=== PATIENT | male | born 1945 | race Caucasian/White ===

== ENCOUNTER 2019-04-02 14:16 | Inpatient (IN) ==
[2019-04-02] MEDS ORDERED: NS 1,000 ML IV ONE ×2 (14:37→14:38)
[2019-04-02 15:12] LABS: BASO# 0.03 X1000 (0.0-0.2); BASO% 0.5 % (0.0-0.8); EOS# 0.03 X1000 (0.0-0.7); EOS% 0.5 % (0.0-10.0); HEMATOCRIT 30.8 % (42.0-52.0); HEMOGLOBIN 10.2 g/dL (14.0-18.0); IMM GRAN# 0.44 X1000 (0.0-0.04); IMM GRAN% 6.8 % (0.0-0.5); LYMPH# 0.68 X1000 (1.2-3.4); LYMPH% 10.6 % (20.5-51.1); MCH 35.3 PG (27-31); MCHC 33.1 g/dL (33-37); MCV 106.6 FL (81-99); MONO# 0.42 X1000 (0.11-0.59); MONO% 6.5 % (1.7-9.3); MPV 10.1 FL (7.4-10.4); NEUT# 4.83 X1000 (1.4-6.5); NEUT% 75.1 % (42.2-75.2); PLT 159 X1000 (130-400); RBC 2.89 XMIL (4.7-6.1); RDW 18.9 % (11.5-14.5); WBC 6.43 X1000 (4.8-10.8)
[2019-04-02 15:28] LABS: PROTIME 13.7 Seconds (11.0-16.0)
--- NOTE | 2019-04-02 15:41 | Diag Imaging Result Doc PS360 ---
CHEST-2 VIEWS - 04/02/2019 INDICATION: short of breath COMPARISON: 01/30/2019 FINDINGS: There is a stable right chest port in good position. There may be some sclerotic densities in the bones compatible with metastases. No focal infiltrates, pneumothorax, or pleural effusion. Heart size and pulmonary vascularity is normal. IMPRESSION: No acute cardiopulmonary abnormality. Electronically signed by Hunter Lehman 04/02/2019 3:38 PM
[2019-04-02 15:45] LABS: ALBUMIN 3.6 g/dL (3.5-5.0); CALCIUM 8.5 mg/dL (8.8-10.2); CREATININE 2.3 mg/dL (0.7-1.2); POTASSIUM 4.4 mmol/L (3.5-5.1); TOTAL BILIRUBIN 0.9 mg/dL (0.20-1.00); TOTAL PROTEIN 5.7 g/dL (6.3-8.3)
[2019-04-02] MEDS ORDERED: ZOSYN 4.5 GM in NS 100 ML IV ONE (15:56)
[2019-04-02] MEDS ORDERED: VANCOMYCIN 1 GM/NS 1 GM/250 ML IVPB IV ONE (15:56)
--- NOTE | 2019-04-02 16:28 | PROVIDER DOCUMENTATION ---
This chart was entered by Melissa Ferris Scribe, acting as scribe for Bhavin Selby MD. HPI-General Adult - General Chief Complaint: B/P Problems Stated Complaint: B/P PROBLEMS Time Seen by Provider: 04/02/19 14:19 Source: patient Allergies/Adverse Reactions: Patient Allergies Allergy/AdvReac Type Severity Reaction Status Date / Time Sulfa (Sulfonamide Allergy Unknown Verified 04/02/19 14:24 Antibiotics) Home Medications: Home Medication List Medication Instructions Recorded Confirmed Last Taken Type Dextroamphetamine/Amphetamine 30 mg PO DAILY 01/29/19 01/29/19 01/30/19 08:00 History [Adderall 30 mg Tablet] Fluoxetine HCl [Prozac] 20 mg PO DAILY 01/29/19 01/29/19 01/30/19 08:00 History Hydrocodone/Acetaminophen [Willcox 1 ea PO PRN PRN 01/29/19 01/29/19 01/29/19 21:00 History 10-325 Tablet] Levothyroxine [Synthroid] 225 microgm PO DAILY 01/29/19 01/29/19 01/30/19 08:00 History Potassium Chloride 30 meq PO DAILY 01/29/19 01/29/19 01/30/19 08:00 History - History of Present Illness -Gen Adult Nature of Presenting Problems: Patient is a 73 year old male who presents with weakness and shortness of breath. Patient states checking his vitals and his blood pressure was 64/55 and his heart rate was 99. Denies cough, nasal congestion, pain, nausea, vomiting and diarrhea. States was admitted to [facility] 8 days ago. Report he is currently on chemo for stage 4 prostate cancer and his last treatment was 4 days ago. Location of Pain/Injury: reports: none Pain Radiation: reports: no radiation Quality of Pain: reports: none Severity: reports: mild Onset/Duration: reports: this afternoon Timing: reports: still present Context/Activities at Onset: reports: light activity Associated Symptoms: reports: shortness of breath, weakness Similar Symptoms Previously?: Yes Recently seen or treated by another doctor?: Yes Review of Systems - Adult - REVIEW OF SYSTEMS - ADULT Constitutional: reports: no symptoms reported. denies: chills, fever, fatique Eyes: reports: no symptoms reported Ears, Nose, Mouth & Throat: reports: no symptoms reported. denies: ear pain, sinus problem, nose pain, throat pain Cardiovascular: reports: no symptoms reported Respiratory: reports: see HPI, shortness of breath. denies: cough, wheezing Gastrointestinal: reports: no symptoms reported. denies: diarrhea, nausea, vomiting Genitourinary: reports: no symptoms reported Musculoskeletal: reports: see HPI, muscle weakness. denies: back pain, muscle aches, neck pain Integumentary: reports: no symptoms reported Neurological: reports: no symptoms reported Psychiatric: reports: no symptoms reported Endocrine: reports: no symptoms reported Hematologic/Lymphatic: reports: no symptoms reported Allergic/Immunologic: reports: no symptoms reported All Other Systems: Reviewed and Negative Past History - Adult - PAST MEDICAL HISTORY-ADULT Review of Records: reports: Nursing Assessment Review, Medications Reviewed, Social history reviewed & non-contributory. Major Childhood Illnesses: reports: denies history Cardiovascular: reports: denies history Respiratory: reports: denies history Gastrointestinal: reports: denies history Obstetrical/Gynecological: reports: denies history Genitourinary: reports: prostate cancer Musculoskeletal: reports: denies history Neurological: reports: denies history Psychiatric: reports: denies history Endocrine/Immune: reports: denies history Other Conditions: reports: denies history - PRIOR SURGERIES/PROCEDURES Surgical/Procedure History: reports: reviewed, not pertinent - IMMUNIZATION STATUS Childhood Immunizations: See Nurse Assessment Flu Vaccine: See Nurse Assessment - FAMILY HISTORY Family History: reviewed, not pertinent - SOCIAL HISTORY Smoking: cigar, less than 1 pack/day Provider spent 3-5 mins advising pt. on dangers of tobacco.: Discussed manners to quit use, and f/u contacts for add'l counseling. Substance Use: denies Physical Exam-General - PHYSICAL EXAM-ADULT Initial Vital Signs Reviewed: Yes - CONSTITUTIONAL General Appearance: alert, no apparent distress. negative: lethargic, slow to respond - HEAD, EARS, NOSE, MOUTH & THROAT HENMT: moist mucous membranes. negative: angioedema, hearing deficit - RESPIRATORY Respiratory: lungs clear, normal breath sounds, other (port to right upper chest). negative: crackles, rales, wheezing - CARDIOVASCULAR Cardiovascular: normal peripheral pulses, regular rate, rhythm. negative: tachycardia, systolic murmur - GASTROINTESTINAL (ABDOMEN) Abdominal Exam: normal bowel sounds, non tender, soft. negative: distended, guarding, rebound - MUSCULOSKELETAL Back Exam: normal inspection. negative: decreased range of motion, muscle spasm Extremity: non-tender, normal inspection. negative: deformity, erythema, swelling - SKIN Integumentary: normal turgor, warm/dry, pallor. negative: diaphoresis, ecchymosis, erythema - NEUROLOGIC Neurologic: grossly normal. negative: aphasia, facial droop - PSYCHIATRIC Psych/Mental Status: normal mood/affect, oriented x 3. negative: anxious Progress - PLAN OF CARE/RESULTS Progress/Plan/Lab Results: Vital Signs - 8 hr 04/02/19 14:21 Temperature 97.4 F L Pulse Rate 103 H Respiratory Rate 20 Blood Pressure 79/55 O2 Sat by Pulse Oximetry 95 Result Diagrams: 04/02/19 15:00 04/02/19 15:00 - REASSESSMENT Reassessment #1 Time Reassessed: 16:25 Status: improving (Given IVF bolus, almaguer cultured, Given IV Vanco/Zosyn in case of line sepsis from port. WIll aske Hospitalist to admit) - XRAY 1 XRAY Study: Chest Impression: See EMR Report ( CHEST-2 VIEWS - 04/02/2019 INDICATION: short of breath COMPARISON: 01/30/2019 FINDINGS: There is a stable right chest port in good position. There may be some sclerotic densities in the bones compatible with metastases. No focal infiltrates, pneumothorax, or pleural effusion. Heart size and pulmonary vascularity is normal. IMPRESSION: No acute cardiopulmonary abnormality. 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 Hypotension Qualifiers: Hypotension type: hypotension due to hypovolemia Qualified Code(s): I95.89 - Other hypotension; E86.1 - Hypovolemia Sepsis Qualifiers: Sepsis type: sepsis due to unspecified organism Qualified Code(s): A41.9 - Sepsis, unspecified organism Disposition: ADMITTED INPATIENT 09 Certified Medical Emergency: Emergent Condition: Fair Referrals and Follow-Ups: None,PCP [Primary Care Provider] - - Critical Care Note This patient required my direct & personal management of CC.: Yes Total Time (mins): 40 Critical Care Statement: This patient required my direct personal management to treat or rule out processes, the absence of which, could potentiallly result in sudden, clinically significant life or limb threatening deterioration. Attestation - Physician/ GOSIA Attestation Patient care was provided by Advanced Practice Provider:: No The physician spent face to face time with patient:: Yes Advanced Practice Provider documentation review:: Supervising physician onsite and consulted in the evaluation and care of this patient. The physician did have a face to face encounter with the patient. This chart was documented by the indicated scribe, (Melissa Ferris Scribe) and accurately reflects the services I performed and decisions made by me, Bhavin Selby MD, as attested by the provider's signature.
[2019-04-02 16:31] LABS: INFLUENZA A NEGATIVE (NEGATIVE); INFLUENZA B NEGATIVE (NEGATIVE)
--- NOTE | 2019-04-02 16:52 | ED EKG INTERP ---
EKG Interpretation - EKG Time of EKG reading by physician:: 16:51 EKG Read and Signed by:: Bhavin Selby EKG Interpretation (*Must complete 3 of following elements*): Abnormal Rate: 87 Rhythm: NSR [place]: normal QRS: other (OIWMI) [place] Interval: normal ST Wave: normal Prior EKG Comparison: unchanged from prior Attestation - Physician/ GOSIA Attestation Patient care was provided by Advanced Practice Provider:: No The physician spent face to face time with patient:: Yes Advanced Practice Provider documentation review:: Supervising physician onsite and consulted in the evaluation and care of this patient. The physician did have a face to face encounter with the patient.
--- NOTE | 2019-04-02 16:53 | EKG Report ---
Test Performed on : 04/02/2019 4:47:17 PM Test Reason : weakness, hypotension Blood Pressure : / mmHG Vent. Rate : 087 BPM Atrial Rate : 087 BPM P-R Int : 176 ms QRS Dur : 094 ms QT Int : 390 ms P-R-T Axes : 010 -15 044 degrees QTc Int : 469 ms Normal sinus rhythm. Inferior infarct , age undetermined Abnormal ECG When compared with ECG of 29-JAN-2019 13:28, Inferior infarct is now present Unconfirmed Result
[2019-04-02] MEDS ORDERED: TYLENOL PO PRN (17:36)
[2019-04-02] MEDS ORDERED: ZOFRAN IV PRN (17:36)
[2019-04-02] MEDS ORDERED: NS 1,000 ML IV SCH (17:45)
[2019-04-02 19:04] LABS: BILIRUBIN URINE NEGATIVE (NEGATIVE); BLOOD URINE NEGATIVE (NEGATIVE); GLUCOSE URINE NEGATIVE (NEGATIVE); KETONE URINE NEGATIVE (NEGATIVE); LEUKOCYTES URINE TRACE (NEGATIVE); NITRITE URINE NEGATIVE (NEGATIVE); PROTEIN URINE 1+(30 mg/dL) mg/dL (NEGATIVE); SP GRAVITY URINE 1.015; UROBILINOGEN URINE NORMAL
[2019-04-02 19:05] LABS: CLARITY CLEAR (CLEAR); COLOR YELLOW
[2019-04-02 19:08] LABS: URINE SOURCE CLEAN CATCH
[2019-04-02 19:12] LABS: URINE BACTERIA NEGATIVE /HFP; URINE CRYSTAL CA OXALATE PRESENT /HPF; URINE EPITHELIAL CELLS <10 /HPF (<10); URINE RBC <10 /HPF (<10); URINE WBC <10 /HPF (<10); URINE YEAST NONE SEEN /HPF
[2019-04-02 19:13] LABS: URINE CAST GRANULAR PRESENT /LPF; URINE SMALL ROUND CELLS TRANSITIONAL PRESENT
[2019-04-02] MEDS: LOVENOX SUBQ SCH (19:37)
--- NOTE | 2019-04-02 19:41 | HISTORY AND PHYSICAL ---
CHIEF COMPLAINT: Low blood pressure and generalized weakness. HISTORY OF PRESENT ILLNESS: This is a 73-year-old gentleman with a history of metastatic prostate cancer, currently receiving chemotherapy, obstructive sleep apnea and hypothyroid. He presents to the emergency room after checking his blood pressure due to increasing weakness, shortness of breath, and he was found to have a pressure of 64/55 with a heart rate of 99. He states that he was in [place] last week with the same symptoms. He was hypotensive at this time. He stated that he was volume depleted. On arrival to the emergency room, he had a pressure of 79/55 with a heart rate of 103. He was found to be in acute kidney injury with a creatinine of 2.3, BUN of 42. He was given 2 L of IV fluid in the emergency room, and blood pressures have stayed in the 99 to 110 over 60s range. PAST MEDICAL HISTORY: 1. Prostate cancer with bony metastases. 2. Hypotension. 3. Hypothyroid. 4. Sleep apnea. PAST SURGICAL HISTORY: Port-A-Cath placement. SOCIAL HISTORY: He smokes about a pack a day. He denies alcohol or illicit drug use. ALLERGIES: Sulfa, which causes unknown reaction. HOME MEDICATIONS: A list will be obtained by the nursing staff, and once verified, we will review and restart as appropriate. REVIEW OF SYSTEMS: Discussed with patient with pertinent positives stated in the HPI. He denied any syncope, dizziness, any chest pain or palpitations, any PND, orthopnea, productive cough, any nausea, vomiting, diarrhea, constipation, black or bloody vomitus or stools, hematuria, dysuria, frequency, urgency. PHYSICAL EXAMINATION: GENERAL: This is a 73-year-old gentleman who is sitting up in the bed in no distress. VITAL SIGNS: Blood pressure is 106/62 with a heart rate of 85, respirations 18, temperature is 97.4 degrees with room air saturations 95% to 97%. EYES: Pupils equal, round, react to light. EOMs are intact. Sclerae are anicteric. HENT: Head is normocephalic, atraumatic. Mucous membranes are dry. NECK: Supple with trachea midline. CARDIOVASCULAR: Regular rate and rhythm. S1 and S2 appreciated. No murmur. Calves are nontender bilateral with peripheral pulses palpable x4 extremities. PULMONARY: Breath sounds are clear with no increased work of breathing noted. Chest rises and falls symmetric with respiration. Chest wall is nontender to palpation. GASTROINTESTINAL: Abdomen is soft, nontender, nondistended with bowel sounds in all 4 quadrants. NEUROLOGIC: He is alert and oriented x3. SKIN: Warm and dry. LABORATORY DATA: WBC is 6.4 with hemoglobin 10.2, hematocrit 30.8, platelets 159,000. Sodium 138, potassium 4.4, BUN 42, creatinine 2.3 with a glucose of 147. Influenza A and B are negative. ASSESSMENT AND PLAN: 1. Hypotension. This is very likely secondary to volume depletion. He was given IV fluids in the emergency room. We will continue with gentle hydration and trend his vital signs. 2. Possible sepsis from port. The patient was in [facility] last week, and sepsis may have been a cause. Blood cultures were obtained in the emergency room. He was given vancomycin and Zosyn. We will attempt to get records from [place] to verify. 3. Prostate cancer with bony metastases. We are aware. He has been followed by Dr. Brothers. We will notify them. 4. Hypothyroid. We will identify his medications and continue. We will obtain a TSH in the morning. 5. Acute kidney injury secondary to low volume depletion. We will repeat his labs in the morning, and we will renal dose medications as appropriate. The patient will be placed on telemetry. We will repeat a CBC, CMP and a TSH in the morning. For DVT prophylaxis, we will use Lovenox 30 mg. We will consult physical therapy. Dictated by DUKE Quijano for Nithin Rashid MD cc: DUKE Quijano MD
--- NOTE | 2019-04-02 20:33 | HISTORY AND PHYSICAL ---
HISTORY AND PHYSICAL: Patient seen and examined by myself. Full note dictated and discussed with nurse practitioner. Patient presented to the hospital initially with blood pressure 64/55. Denies any fevers, chills, cough, congestion. Denies any infectious type symptoms. He actually states he was just seen in [place] approximately a week ago for very similar situation. He had a full workup then that he reports as negative. PLAN: We will admit him to the hospital, place him on IV fluids. We will hold his antibiotics currently, as all of his lab work so far is negative. He did receive a dose of Zosyn and vancomycin in the ER while his lab work was being run. Further orders as needed. Please see full note. cc: Nithin Rashid MD
[2019-04-03 05:26] LABS: HEMATOCRIT 26.5 % (42.0-52.0); HEMOGLOBIN 8.8 g/dL (14.0-18.0); MCH 35.3 PG (27-31); MCHC 33.2 g/dL (33-37); MCV 106.4 FL (81-99); MPV 9.5 FL (7.4-10.4); RBC 2.49 XMIL (4.7-6.1); RDW 18.7 % (11.5-14.5); WBC 3.53 X1000 (4.8-10.8)
[2019-04-03 05:32] LABS: AGAP 10; ALBUMIN 3.2 g/dL (3.5-5.0); BUN 30 mg/dL (8-22); CALCIUM 7.5 mg/dL (8.8-10.2); CHLORIDE 107 mmol/L (98-107); COSMO 282; ESTIMATED GFR > 60; GLUCOSE 107 mg/dL (70-104); POTASSIUM 4.4 mmol/L (3.5-5.1); SODIUM 138 mmol/L (136-145); TCO2 22 mmol/L (25-35); TOTAL PROTEIN 5.3 g/dL (6.3-8.3)
[2019-04-03 05:33] LABS: ALKALINE PHOSPHATASE 130 U/L (32-122); GOT 12 U/L (10-34); GPT 15 U/L (10-44)
[2019-04-03] MEDS ORDERED: NORCO-10 PO PRN (06:40)
[2019-04-03] MEDS ORDERED: XANAX PO PRN (06:40)
[2019-04-03] MEDS ORDERED: CYTOXAN PO SCH (06:45)
[2019-04-03] MEDS ORDERED: DEXAMETHASONE PO SCH (09:00)
[2019-04-03] MEDS: NS 1,000 ML IV SCH (09:19)
[2019-04-03] MEDS: CALTRATE 600 + D PO SCH (09:20)
[2019-04-03] MEDS: SYNTHROID PO SCH ×2 (09:20)
[2019-04-03] MEDS: PROZAC PO SCH (09:20)
[2019-04-03] MEDS ORDERED: VANCOMYCIN IV PER PHARMACY MISC SCH (11:30)
[2019-04-03] MEDS: ZOSYN 3.375 GM in NS 50 ML IV SCH ×3 (11:53→23:14)
[2019-04-03] MEDS: VANCOMYCIN 2,000 MG in NS 500 ML IV SCH (11:59)
[2019-04-03] MEDS: LOVENOX SUBQ SCH (17:54)
--- NOTE | 2019-04-03 19:52 | PROGRESS NOTE ---
DATE: 04/03/2019 SUBJECTIVE: The patient notes that he is feeling better. He has been able to sit up without any difficulty. OBJECTIVE: Temperature 98.6, pulse 85, respiratory rate 18, BP 117/60.General: The patient is in no current distress. He is awake and alert. He is lying in bed. He is pleasant to talk with. HEENT: Normocephalic. Neck: Supple. Cardiovascular: Regular rate. No murmurs. Chest: Clear and nonlabored. Abdomen: Soft. Extremities: Moves all extremities. Neurologic: No changes. ASSESSMENT: 1. Hypotension. Appears resolved although his blood pressures are better at 117. He has a history of taking losartan and certainly needs to continue to holding this until his blood pressure is elevated. 2. Prostate cancer with bony metastases. 3. Hypothyroidism. His thyroid stimulating hormone is elevated at 21. He has been taking his 200 mcg of Synthroid, therefore we will increase to 250. Although this could be causing his tiredness and fatigue it usually does not all cause such significant hypotension, and certainly would not improve without increasing his or even giving a new dose of Synthroid. 4. Volume depletion, resolved. 5. Acute kidney injury, resolved. PLAN: Overall the patient is better. I expect that he is getting dehydrated which is causing his blood pressures to be low. He currently has no signs nor symptoms of sepsis or elevated white count. We will recheck this in the morning. His lactic acid was normal. He is having no fevers. Hopefully he will continue to improve and can discharge home in 1 to 2 days. cc: Nithin Rashid MD
[2019-04-03] MEDS ORDERED: ZOCOR PO SCH (21:00)
[2019-04-04] MEDS: NS 1,000 ML IV SCH (02:38)
[2019-04-04] MEDS: ZOSYN 3.375 GM in NS 50 ML IV SCH (05:25)
[2019-04-04] MEDS: VANCOMYCIN 2,000 MG in NS 500 ML IV SCH (05:58)
[2019-04-04] MEDS: SYNTHROID PO SCH ×2 (05:59)
[2019-04-04 08:20] VITALS: BP 99/47
[2019-04-04] MEDS: CALTRATE 600 + D PO SCH (08:21)
[2019-04-04] MEDS: PROZAC PO SCH (08:21)
--- NOTE | 2019-04-05 01:13 | DISCHARGE SUMMARY ---
ADMISSION DATE: 04/02/2019 DISCHARGE DATE: 04/04/2019 DISCHARGE DIAGNOSIS: 1. Volume depletion, resolved. 2. Syncope, resolved. 3. Hypotension, resolved, secondary to his volume depletion. 4. Prostate cancer with bony metastases. 5. Recurrent hypotension. 6. Hypothyroidism. TSH is still elevated despite taking 200 mcg daily. We have increased it to 250. 7. Sleep apnea. CONSULTATIONS: None. PROCEDURES: None. BRIEF HOSPITAL COURSE: The patient is a 73-year-old male who presented to the hospital with a syncopal episode. Was subsequent diagnosed with hypotension. We were concerned that he was septic given he does have a port for chemotherapy. However, his symptoms resolved very quickly after being given fluid boluses in the ER and continued to improve with fluid resuscitation. Therefore, it is unlikely that it is septic as the cause. We have stopped his antibiotics currently. DISPOSITION: Patient will be discharged home. He will continue to hold his blood pressure medications for now. Discussed with him the importance of hydration and avoiding the heat currently. We will continue to follow. Greater than 30 minutes was spent in total care. cc: Nithin Rashid MD
--- NOTE | 2019-04-05 03:55 | DISCHARGE SUMMARY ---
ADMISSION DATE: 04/02/2019 DISCHARGE DATE: 04/04/2019 PRIMARY CARE PHYSICIAN: Dr. Seng Brothers. DIAGNOSES: 1. Hypotension, resolved. 2. Prostate cancer with bony metastasis, aware. He is being followed by Dr. Brothers. 3. Hypothyroidism. 4. Volume depletion, resolved. 5. Acute kidney injury, resolved. DIAGNOSTICS: Chest x-ray revealed no acute cardiopulmonary abnormality. HOSPITAL COURSE: Mr. Dove presented to the emergency room with low blood pressure and generalized weakness. He reported being admitted to an outside facility for the same within the last 2 weeks. He was felt to have hypotension secondary to volume depletion. Diuretics and blood pressure medications were held. He was given IV fluids and after rehydration blood pressures have improved. He was found to have a TSH of 21. Therefore, his Synthroid was increased from 200 mcg to 250 mcg. He had a creatinine of 2.3 on admission. After hydration, his creatinine was down to 1. Thankfully, he has improved. His generalized weakness has resolved and he is ready for discharge. DISCHARGE VITAL SIGNS: Blood pressure is 126/71 with a heart rate of 87, respirations 19, temperature is 98.4 degrees oral with room air saturation of 98%. PHYSICAL EXAMINATION: Cardiovascular: Regular rate and rhythm. S1 and S2 appreciated. Pulmonary: Breath sounds are clear with no increased work of breathing noted. Gastrointestinal: Abdomen is soft, nontender, nondistended with bowel sounds in all 4 quadrants. Neurologic: He is alert and oriented x3. DISCHARGE MEDICATIONS: 1. Alprazolam 0.5 mg p.o. at bedtime p.r.n. 2. Calcium 600 with vitamin D 1 p.o. daily. 3. Cyclophosphamide 250 as directed. 4. Dexamethasone 0.75 p.o. b.i.d. 5. Adderall 30 p.o. daily. 6. Prozac 20 mg p.o. daily. 7. Gaylord 10/325 one q.6 hours p.r.n. 8. Levothyroxine 250 mcg p.o. daily. 9. Potassium chloride 20 mEq p.o. daily. 10. PreserVision soft gel 1 p.o. daily. 11. Simvastatin 20 mg p.o. at bedtime. 12. The patient was instructed to hold his losartan until he is evaluated by Dr. Brothers, has appointment April 11 at 8 a.m. At that time he is to get further instructions for losartan from Dr. Brothers. FOLLOW-UP: Dr. Seng Brothers 04/11/2019 at 8 a.m. He has been instructed to call to be seen sooner or return to the ER for recurrence of any symptoms, temperature greater than 101, any chest pain, palpitations, syncope, dizziness, any nausea, vomiting, diarrhea, constipation, black or bloody vomitus or stools, any hematuria, dysuria, frequency, urgency or for any questions or concerns that he may have. He is being discharged home in stable condition with family members. TIME SPENT: This is a greater than 30 minute discharge. On admission, the ER physician felt that the patient could be septic secondary to a port infection as the patient had mentioned this on arrival. Blood cultures revealed no growth after 48 hours. His urine culture revealed no growth. Because of the possibility, he initially received antibiotic coverage of vancomycin dosed per pharmacy as well as Zosyn. As cultures were negative, the patient is afebrile, we have no source for infection, he will be discharged on no antibiotics. Dictated by DUKE Quijano for Nithin Rashid MD cc: DUKE Quijano MD Sammy Becdach, MD
== END 2019-04-04 11:35 | disposition home or self-care (01) | DRG 641 ==
LOC: P.ED 14:16 → P.MEDSURG 18:07
PROVIDERS: ATTEND Family Medicine
CPT/HCPCS: 71020; 71046; 80053; 81001; 82550; 83605; 83735; 83880; 84443; 84484; 85025; 85027; 85610; 87040; 87088; 87275; 87276; 87804; 93005; 96361; 96365; 96367; 97161; 97530; 99285; A9270; J1650; J2543; J3370; J7030; J7040

== ENCOUNTER 2020-01-07 08:21 | Inpatient (IN) ==
[2020-01-07] MEDS ORDERED: LR 1,000 ML ONE (08:52)
[2020-01-07] MEDS ORDERED: KEFZOL 1 GM/D5W 2 GM/100 ML IVPB ONE (08:52)
[2020-01-07] MEDS ORDERED: DIPRIVAN 1% ONE (09:26)
[2020-01-07] MEDS ORDERED: FENTANYL ONE (09:28)
[2020-01-07 09:37] LABS: INR 1.05; PROTIME 13.8 Seconds (11.0-16.0)
[2020-01-07 09:38] LABS: PTT 31.8 Seconds (22.3-41.8)
--- NOTE | 2020-01-07 09:38 | EKG Report ---
Test Performed on : 01/07/2020 09:19:45 AM Test Reason : pre op Blood Pressure : / mmHG Vent. Rate : 074 BPM Atrial Rate : 074 BPM P-R Int : 154 ms QRS Dur : 108 ms QT Int : 430 ms P-R-T Axes : -16 -01 025 degrees QTc Int : 477 ms Normal sinus rhythm. Normal ECG When compared with ECG of 02-APR-2019 16:47, No significant change was found Confirmed by Ronak Loja MD ([id number]) on 01/08/2020 6:18:18 PM
[2020-01-07 10:05] LABS: BASO# 0.03 X1000 (0.0-0.2); BASO% 0.8 % (0.0-0.8); EOS# 0.13 X1000 (0.0-0.7); EOS% 3.3 % (0.0-10.0); HEMATOCRIT 33.1 % (42.0-52.0); HEMOGLOBIN 10.2 g/dL (14.0-18.0); IMM GRAN# 0.05 X1000 (0.0-0.04); IMM GRAN% 1.3 % (0.0-0.5); LYMPH# 1.01 X1000 (1.2-3.4); LYMPH% 25.9 % (20.5-51.1); MCH 29.2 PG (27-31); MCHC 30.8 g/dL (33-37); MCV 94.8 FL (81-99); MONO# 0.38 X1000 (0.11-0.59); MONO% 9.7 % (1.7-9.3); PLT 299 X1000 (130-400); RBC 3.49 XMIL (4.7-6.1); RDW 18.1 % (11.5-14.5)
[2020-01-07 10:21] LABS: AGAP 12; BUN 11 mg/dL (8-22); CALCIUM 8.5 mg/dL (8.8-10.2); CHLORIDE 100 mmol/L (98-107); COSMO 268; CREATININE 0.9 mg/dL (0.7-1.2); ESTIMATED GFR > 60; GLUCOSE 103 mg/dL (70-104); POTASSIUM 4.3 mmol/L (3.5-5.1); SODIUM 134 mmol/L (136-145); TCO2 22 mmol/L (25-35)
[2020-01-07] MEDS ORDERED: SODIUM CHLORIDE 0.9% 10 ML ONE (10:48)
[2020-01-07] MEDS ORDERED: ZOFRAN ONE (10:48)
[2020-01-07] MEDS ORDERED: OFIRMEV 1000 MG/ISOTONIC SOLN 1,000 MG/100 ML BOTTLE ONE (10:48)
[2020-01-07] MEDS ORDERED: DECADRON ONE (10:48)
[2020-01-07] MEDS ORDERED: EPHEDRINE ONE (11:22)
--- NOTE | 2020-01-07 11:46 | OPERATIVE NOTE ---
PROCEDURE DATE: 01/07/2020 PREOPERATIVE DIAGNOSIS: Pathological lesions with impending fracture, right femur. POSTOPERATIVE DIAGNOSIS: Pathological lesions with impending fracture, right femur. PROCEDURE PERFORMED: Prophylactic trochanteric nail fixation, right femur. SURGEON: Esteban Elise M.D. HEATING REPAIR TECHNICIAN: Adan Napoles RN. ANESTHESIA: General. COMPLICATIONS: None. PROCEDURE IN DETAIL: This 74-year-old male with metastatic prostate disease presents for surgical fixation of the right femur. Risks, benefits, and no guarantees were discussed, and he is willing to proceed. He was taken to the operating room, and satisfactory anesthesia obtained. He was transferred to the fracture table, and the right thigh and hip and leg were prepped and draped in the usual sterile fashion. A time-out was taken to confirm operative site, procedure, and patient. An entry portal along the lateral thigh was made through a 1-inch incision proximal to the greater trochanter. Dissection was carried down the tip of the trochanter, and a guide pin advanced down the intramedullary canal. TFN entry reamer was used to prepare the channel, and the guide pin removed, and the ball-tip guidewire inserted down the intramedullary shaft to the distal femur. An appropriate length nail was selected to go from the hip to the knee, and the guidewire reamed with a 12 mm reamer. An 11 diameter by 40/20 mm nail was selected and inserted over the guidewire, and the guidewire withdrawn. An accessory lateral portal was made opposite the lesser trochanter, and the helical blade guide pin advanced down to bone. Under multiplanar image guidance, the helical blade was placed in the central, slightly inferior aspect of the femoral neck to stabilize the hip without disrupting vascular vessels to the femoral head. This was fully seated in the antirotation screw set. A distal locking screw was placed through the static slot at the nail using C-arm guidance through an accessory stab wound laterally, distally. An appropriate bicortical length screw was inserted with secure fixation. The C-arm was then used to verify accurate hardware placement. All guides were removed, and the wounds irrigated and closed in layers with 2-0 Vicryl and jr. Sterile dressings were applied, and he was recovered from anesthesia and transferred to the recovery room in stable condition. No intraoperative complications were noted. Instrument count and sponge count were correct at the time of closure. cc: Esteban Elise MD
[2020-01-07] MEDS ORDERED: 1/2 NS 1,000 ML ONE (12:09)
[2020-01-07] MEDS ORDERED: NORCO-5 PO PRN (13:15)
[2020-01-07] MEDS ORDERED: NORCO-7.5 PO PRN (13:15)
[2020-01-07] MEDS ORDERED: 1/2 NS 1,000 ML IV SCH (14:00)
[2020-01-07] MEDS: NORCO-10 PO PRN ×2 (14:07→18:10)
[2020-01-07 16:00] LABS: URINE SOURCE CATH
[2020-01-07 16:03] LABS: BILIRUBIN URINE NEGATIVE (NEGATIVE); BLOOD URINE NEGATIVE (NEGATIVE); COLOR YELLOW; GLUCOSE URINE NEGATIVE (NEGATIVE); KETONE URINE TRACE mg/dL (NEGATIVE); LEUKOCYTES URINE NEGATIVE (NEGATIVE); NITRITE URINE NEGATIVE (NEGATIVE); PROTEIN URINE TRACE mg/dL (NEGATIVE); SP GRAVITY URINE 1.021; TURBIDITY URINE CLEAR (CLEAR); UROBILINOGEN URINE NORMAL (NORMAL)
[2020-01-07 16:04] LABS: UR EPITHELIAL CELLS <10 /HPF (<10); URINE BACTERIA NEGATIVE /HPF; URINE RBC <10 /HPF (<10); URINE WBC <10 /HPF (<10)
[2020-01-07] MEDS: MS CONTIN PO SCH ×2 (18:12→20:31)
[2020-01-07] MEDS: PERIDEX MT SCH (20:31)
[2020-01-07] MEDS ORDERED: MORPHINE IR PO SCH (21:00)
[2020-01-08] MEDS: NORCO-10 PO PRN ×3 (01:09→09:40)
[2020-01-08] MEDS: CALTRATE 600 + D PO SCH ×2 (05:24→09:56)
[2020-01-08] MEDS: COLACE PO SCH ×2 (05:24→09:56)
[2020-01-08] MEDS: PROZAC PO SCH ×2 (05:24→09:56)
[2020-01-08] MEDS: PERIDEX MT SCH ×3 (05:24→22:32)
[2020-01-08] MEDS: SYNTHROID PO SCH ×2 (05:24→06:42)
[2020-01-08] MEDS: PATIENT'S OWN MED PO SCH ×2 (05:25→09:56)
[2020-01-08] MEDS: MS CONTIN PO SCH ×2 (06:38→17:13)
[2020-01-08] MEDS ORDERED: SYNTHROID PO SCH (07:00)
[2020-01-08] MEDS ORDERED: APALUTAMIDE 60 MG PO SCH (09:00)
[2020-01-08] MEDS: PERCOCET-10 PO PRN ×3 (12:54→21:19)
--- NOTE | 2020-01-08 13:17 | ORTHOPAEDICS PROGRESS NOTE ---
DATE: 01/08/2020 SUBJECTIVE DATA: Mr. Dove is seen postop day 1 of his right trochanteric nail fixation of the hip with pathological lesions and impending fracture. He reports he does not feel well at all. He states his leg is severely weak, and he cannot get up out of the bed without assistance x2. He reports that when physical therapy came to help him get up he was unable to ambulate on the leg. OBJECTIVE DATA: There is good sensation on the lower extremity. The bandages are clean and dry. There is negative Homans sign. He has good pedal pulses. There is good capillary refill in the toes. There is no active bleeding. The patient can flex his quadriceps muscles, but seems to have some type of muscle spasm upon flexing the muscles. ASSESSMENT: Pathological lesions with impending fracture right femur with trochanteric fixation nail placement. PLAN: We plan to hold on Mr. Dove as they want physical therapy some more. He will likely need some type of rehab placement to help him get back to his baseline. We will check back on him tomorrow, and see how he is doing. I have changed his pain medication to Percocet instead of [place]. Dictated by DUKE Gleason for Esteban Elise MD cc: DUKE Gleason MD
--- NOTE | 2020-01-08 17:19 | Diag Imaging Result Doc PS360 ---
EXAM: CHEST-1 VIEW INDICATION: REHAB TECHNIQUE: One view COMPARISON: 04/02/2019 FINDINGS: There is a stable right chest port. There is stable mild interstitial thickening bilaterally suggesting mild fibrotic change. Otherwise, the lungs are grossly clear. There is no discrete pleural fluid collection or pneumothorax. The cardiomediastinal silhouette and central vasculature are grossly unremarkable. IMPRESSION: Stable coarse interstitial thickening suggesting likely mild fibrotic change. Electronically signed by Esteban Molina 01/08/2020 5:16 PM
[2020-01-09] MEDS: PERCOCET-10 PO PRN ×4 (02:09→20:52)
[2020-01-09] MEDS: SYNTHROID PO SCH (06:36)
[2020-01-09] MEDS: COLACE PO SCH ×2 (06:37→13:29)
[2020-01-09] MEDS: CALTRATE 600 + D PO SCH ×2 (06:37→13:28)
[2020-01-09] MEDS: PERIDEX MT SCH ×2 (06:37→13:29)
[2020-01-09] MEDS: PROZAC PO SCH ×2 (06:37→13:29)
[2020-01-09] MEDS: MS CONTIN PO SCH ×2 (06:38→17:53)
[2020-01-09] MEDS: PATIENT'S OWN MED PO SCH ×2 (06:39→13:29)
--- NOTE | 2020-01-09 14:30 | ORTHOPAEDICS PROGRESS NOTE ---
DATE: 01/09/2020 SUBJECTIVE DATA: Mr. Dove is since seen postop day 2 of his right trochanteric nail fixation of his hip. He had some pathological lesions with impending fracture. He reported that his leg weakness has improved slightly from yesterday to today. He states he got out of bed with physical therapy assistance x2 and ambulated right outside the door and back into the room. He states his pain is well under control with the Percocet now. He states his pain at this time is about 3/10. OBJECTIVE DATA: Has good sensation to the right lower extremity. His bandages are clean and dry. There is negative Homans sign. He has good pedal pulses. There is good capillary refill in the toes. The patient is able to flex his quadriceps muscles without difficulty. There is no active bleeding.Vital Signs: Have been stable. ASSESSMENT: Pathological lesions with impending fracture to the right femur with trochanteric fixation nail placement. PLAN: Hold on to Mr. Dvoe today and we will check back on him in the morning to see if we can likely discharge him tomorrow to rehab. Dictated by DUKE Gleason for Esteban Elise MD cc: DUKE Gleason MD
[2020-01-10] MEDS: PERCOCET-10 PO PRN ×2 (02:29→09:41)
[2020-01-10] MEDS: PERIDEX MT SCH ×2 (03:02→09:41)
[2020-01-10] MEDS: SYNTHROID PO SCH ×2 (05:34→07:32)
[2020-01-10] MEDS: MS CONTIN PO SCH (05:36)
[2020-01-10] MEDS: PATIENT'S OWN MED PO SCH (06:00)
--- NOTE | 2020-01-10 09:13 | DISCHARGE SUMMARY ---
ADMISSION DATE: 01/07/2020 DISCHARGE DATE: 01/10/2020 ADMISSION DIAGNOSIS: Pathological lesions with impending fracture to the right femur. DISCHARGE DIAGNOSIS: Pathological lesions with impending fracture to the right femur. PRINCIPLE PROCEDURE: Right trochanteric fixation nail. PAST MEDICAL HISTORY: Includes bone cancer, sleep apnea, depression, and hypothyroidism. ALLERGIES: Patient is allergic to sulfa. DISCHARGE MEDICATIONS: 1. Percocet 10 for pain. 2. Phenergan for nausea. 3. Aspirin 325 daily for DVT prophylaxis. 4. Doxycycline 100 mg twice daily for infection prevention. HOSPITAL COURSE: The patient was taken to the operating room on 01/07/2020 where a right trochanteric nail fixation was performed. He tolerated the procedure well. He was transferred to the recovery unit where he did well. He was then transferred to the surgical floor where mechanical and DVT prophylaxis was initiated. Routine postop antibiotics were administered. He was started on physical therapy right away where he was having some difficulty. He did get up to the edge of the bed on day 1. On day 2, he ambulated to the door and back. We decided it would be better for him to go to inpatient rehab. He was able to spontaneously void. He transitioned to oral pain medication. His incisions remained clean, dry, and intact during hospital course. There has been no pain with calf squeeze. The patient can flex his quadriceps muscles without difficulty. There is good sensation. There are good pedal pulses. He was felt ready to be discharged on 01/10/2020 for rehab. DISPOSITION: He is going to be discharged to rehab. FOLLOW-UP: He is to follow up with Dr. Elise in roughly 2 to 3 weeks or when he gets out of rehab for follow-up x-rays. DISCHARGE INSTRUCTIONS: Make sure he takes his aspirin daily and pain medication. Keep the area clean, dry and covered. We will see him in clinic for follow-up. Dictated by UDKE Gleason for Esteban Elise MD cc: DUKE Gleason MD
[2020-01-10] MEDS: PROZAC PO SCH (09:41)
[2020-01-10] MEDS: COLACE PO SCH (09:41)
[2020-01-10] MEDS: CALTRATE 600 + D PO SCH (09:41)
[2020-01-10 11:23] VITALS: BP 123/66
== END 2020-01-10 12:25 | DRG 940 ==
LOC: 4N 08:21 → OR 08:21 → OBSVTOIN 12:16
PROVIDERS: ADMIT Orthopaedic Surgery Adult Reconstructive Orthopaedic Surgery; ATTEND Orthopaedic Surgery Adult Reconstructive Orthopaedic Surgery